=== PATIENT | female | born 2000 | race African-American/Black ===

== ENCOUNTER 2024-02-09 10:24 | Inpatient (IN) | payer SELFPAY ==
[2024-02-09] MEDS: HumaLOG 300 UNITS/3 ML VIAL SC PRN (10:27)
[2024-02-09] MEDS ORDERED: Glucagon 1 MG/ML KIT IM PRN (10:30)
[2024-02-09] MEDS ORDERED: Dextrose 50% Abboject 50 ML SYRINGE SLOW IVP PRN (10:30)
[2024-02-09] MEDS ORDERED: Dextrose 5% in Water 1,000 ML IV PRN (10:30)
[2024-02-09] MEDS ORDERED: Benzocaine/Menthol 1 LOZ LOZ PO PRN (10:30)
[2024-02-09] MEDS ORDERED: Guaifenesin DM 100-10/5 ML UDCUP PO PRN (10:31)
[2024-02-09] MEDS ORDERED: Communication Order-Pharmacy FS PRN (10:40)
[2024-02-09] MEDS: cefTRIAXone\\ROCEPHIN 1 GM in Sodium Chloride 0.9% 100 ML IVPB SCH (10:45)
[2024-02-09] MEDS: Sodium Chloride 0.9% 1,000 ML IV SCH (11:00)
[2024-02-09] MEDS: Sodium Chloride 0.9% 250 ML IV SCH (11:00)
[2024-02-09 11:01] LABS: MONO NEGATIVE CONTROL ZONE White (Negative) (White); MONO POSITIVE CONTROL Pink Line (Positive) (PINK/RED); Mononucleosis NEGATIVE (NEGATIVE)
[2024-02-09 11:03] LABS: Troponin I Less than 0.010 ng/mL (< 0.028)
[2024-02-09 11:07] LABS: Lactic Acid 1.7 mmol/L (0.5-2.2)
[2024-02-09 11:08] LABS: Bilirubin Negative (Negative); Blood, Urine 250 (Negative); Clarity Cloudy (Clear); Glucose, Urine (Dipstick) Negative (Negative); Ketone, Urine 15 mg/dL (Negative); Leukocyte 500 (Negative); Nitrite Negative (Negative); Protein, Urine (Dipstick) 100 mg/dl (Neg-Trace); RBC/HPF 21-50 HPF (0-3); Urobilinogen Normal mg/dL (Less than 2); WBC/HPF Greater than 50 HPF (0-3)
[2024-02-09 11:09] LABS: Bacteria/HPF 4+ HPF (None Seen)
[2024-02-09 11:11] LABS: Hematocrit 30.3 % (34.9-44.5); Hemoglobin 11.1 g/dL (12.0-15.5); Mean Corpuscular HGB CONC 36.6 g/dL (32.0-36.0); Mean Corpuscular Hemoglobin 33.3 pg (27.0-33.0); Mean Platelet Volume 12.8 fl (7.4-10.4); RBC Distribution Width 12.8 % (11.5-14.5); Red Blood Cell (RBC) Count 3.33 10x6/uL (3.90-5.03); White Blood Cell (WBC) Count 17.4 10x3/uL (3.5-10.5)
[2024-02-09 11:12] LABS: MDiff Complete? YES; Platelet Count 91 10x3/uL (150-450); Toxic Granulation SLIGHT; Vacuoles SLIGHT
[2024-02-09 11:13] LABS: Dohle Bodies SLIGHT
[2024-02-09 11:14] LABS: Platelet Adequacy Comment Appears Decreased
[2024-02-09 11:15] LABS: Band 25 % (5-11); Eosinophils 2 % (0-10); Lymphocytes 4 % (21-51); Metamyelocyte 2 % (0-0); Monocytes 12 % (0-10); Myelocyte 2 % (0-0); Neutrophil 53 % (42-75)
[2024-02-09 11:16] LABS: RBC Morph Comment Within Normal Limits
[2024-02-09 11:20] LABS: Sodium 131 mmol/L (136-145)
[2024-02-09 11:21] LABS: Anion Gap 27 mmol/L (10-20); BUN (Urea Nitrogen) 60 mg/dL (7.0-18.7); Calc. Creatinine Clearance 24 mL/min (70-130); Calcium 7.3 mg/dL (7.6-10.4); Carbon Dioxide 10 mmol/L (22-29); Chloride 98 mmol/L (98-107); Estimated GFR 22; Glucose 187 mg/dL (70-105)
[2024-02-09 11:22] LABS: AST (SGOT) 30 U/L (5-34); Albumin 1.9 g/dL (3.5-5.0); Alkaline Phosphatase 232 U/L (40-110); Bilirubin, Total 0.9 mg/dL (0.2-1.2); CK (CPK) 24 U/L (29-168); Globulin 4.8 g/dL (2.4-3.5); Protein, Total 6.7 g/dL (6.0-8.3)
[2024-02-09 11:23] LABS: ALT (SGPT) 24 U/L (8-55); Magnesium 2.3 mg/dL (1.6-2.6); Phosphorus 4.8 mg/dL (2.3-4.7)
[2024-02-09 11:38] LABS: Phosphorus 4.8 mg/dL (2.3-4.7)
[2024-02-09 12:00] LABS: Free T4 (Free Thyroxine) 1.11 ng/dL (0.70-1.48)
[2024-02-09] MEDS: Metoprolol Tartrate 5 MG (5 mL) VIAL IVP SCH (12:11)
[2024-02-09] MEDS: Pantoprazole 40 MG VIAL IVP SCH (12:50)
[2024-02-09 13:28] LABS: Influenza A by NAA Not Detected (NotDetected); Influenza B by NAA Not Detected (NotDetected); RSV by NAA Not Detected (NotDetected); SARS-CoV-2 NAA Rapid Test Not Detected (NotDetected)
[2024-02-09] MEDS: Ondansetron PF 4 MG/2 ML Vial IVP PRN (14:44)
[2024-02-09] MEDS: Metoprolol Tartrate 5 MG (5 mL) VIAL ONE (14:58)
[2024-02-09] MEDS: Metoclopramide HCl 10 MG (2 mL) VIAL IVP SCH (15:18)
[2024-02-09] MEDS: Metoprolol Tartrate 25 MG TAB PO SCH ×2 (15:18→19:59)
[2024-02-09] MEDS: Morphine 2 MG/ML VIAL SLOW IVP PRN (15:18)
[2024-02-09] MEDS: Piperacillin/Tazobactam 3.375 GM in Sodium Chloride 0.9% 100 ML IVPB SCH ×2 (15:18→19:59)
[2024-02-09 16:32] LABS: Amphetamine Not Detected (NotDetected); Barbiturates Screen Not Detected (NotDetected); Benzodiazepine Screen Not Detected (NotDetected); Cocaine Metabolite Screen Not Detected (NotDetected); Methadone Not Detected (NotDetected); Methamphetamine Not Detected (NotDetected); Opiate Screen Detected (NotDetected); Oxycodone Screen Not Detected (NotDetected); Phencyclidine (PCP) Not Detected (NotDetected); THC/Cannabinoid Screen Detected (NotDetected); Tricyclic Screen Not Detected (NotDetected)
[2024-02-09 17:04] LABS: D-Dimer Test 6.46 mcg/mL (0.19-0.50); INR-International Normal Ratio 1.3; PTT 26.8 sec (22.0-33.0); Prothrombin Time 13.4 sec (9.5-12.1)
[2024-02-09 17:05] LABS: HIV (1/2) Antibody/Antigen Non-Reactive (NonReactive); HIV 1/2 INDEX 0.06 S/CO (<1.00)
[2024-02-09 18:20] LABS: Hemoglobin A1c 9.1 % (4.0-6.0)
[2024-02-09] MEDS: Albumin 25% 25 GM (100 mL) BOT IVPB SCH (20:00)
[2024-02-09] MEDS: Calcium Carbonate 500 MG ChewTAB PO SCH (20:00)
[2024-02-09 20:16] LABS: Anion Gap 20 mmol/L (10-20); BUN (Urea Nitrogen) 53 mg/dL (7.0-18.7); Calc. Creatinine Clearance 30 mL/min (70-130); Carbon Dioxide 10 mmol/L (22-29); Chloride 102 mmol/L (98-107); Estimated GFR 29; Glucose 153 mg/dL (70-105); Potassium 3.7 mmol/L (3.5-5.1); Sodium 128 mmol/L (136-145)
[2024-02-09 20:18] LABS: Hematocrit 19.4 % (34.9-44.5); Hemoglobin 6.8 g/dL (12.0-15.5); Platelet Count 71 10x3/uL (150-450)
[2024-02-09 23:34] LABS: D-Dimer Test 7.27 mcg/mL (0.19-0.50); INR-International Normal Ratio 1.2; PTT 38.4 sec (22.0-33.0); Prothrombin Time 13.3 sec (9.5-12.1)
[2024-02-09 23:38] LABS: Albumin 2.1 g/dL (3.5-5.0); Bilirubin, Direct 0.5 mg/dL (0.1-0.3); Bilirubin, Total 1.4 mg/dL (0.2-1.2); Calcium 7.6 mg/dL (7.8-10.44); Globulin 4.5 g/dL (2.4-3.5); Potassium 4.7 mmol/L (3.5-5.1); Protein, Total 6.6 g/dL (6.0-8.3)
[2024-02-09 23:45] LABS: Chlam.trachomatis by PCR,Urine Not Detected (NotDetected); GC N.gonorrhoeae PCR,UrineVOID Not Detected (NotDetected)
[2024-02-09 23:47] LABS: Fibrinogen Greater than 860 mg/dL (220-504)
[2024-02-09 23:48] LABS: Platelet Count 62 10x3/uL (150-450)
[2024-02-09 23:50] LABS: Hematocrit 28.7 % (34.9-44.5); Hemoglobin 10.2 g/dL (12.0-15.5); Mean Corpuscular HGB CONC 35.5 g/dL (32.0-36.0); Mean Corpuscular Hemoglobin 32.8 pg (27.0-33.0); Mean Corpuscular Volume 92.3 fl (81.6-98.3); Mean Platelet Volume 12.8 fl (7.4-10.4); RBC Distribution Width 13.9 % (11.5-14.5); Red Blood Cell (RBC) Count 3.11 10x6/uL (3.90-5.03); White Blood Cell (WBC) Count 18.8 10x3/uL (3.5-10.5)
[2024-02-09 23:51] LABS: MDiff Complete? YES; Platelet Count 64 10x3/uL (150-450)
[2024-02-10] MEDS: traMADol HCl 50 MG TAB PO PRN (00:02)
[2024-02-10 00:23] LABS: Band 36 % (5-11); Lymphocytes 8 % (21-51); Monocytes 7 % (0-10); Neutrophil 49 % (42-75)
[2024-02-10 00:27] LABS: Platelet Adequacy Comment Appears Decreased; RBC Morph Comment Within Normal Limits
[2024-02-10 01:01] LABS: Actual Bicarbonate (HCO3v) 9.1 mEq/L (22-28); Analyzer IN Cardio CS ICU; Base Excess -18.5 mEq/L (-2 - +2); Calcium, Ionized (venous) 1.01 mmol/L (1.16-1.32); Chloride (VBG) 100 mmol/L (98-106); Critical Notified By: CP.PH; Critical Notified Whom: RN-Ceranise; Hematocrit-VBG 35 % (36.0-47.0); Hemoglobin (Hb) 11.8 g/dL (11.7-15.5); Potassium (VBG) 4.01 mmol/L (3.70-5.30); Puncture Site Other Site; RapidComm Collect By LAB.YY; Sodium 130 mmol/L (133-146)
[2024-02-10 01:18] LABS: Dohle Bodies SLIGHT; Toxic Granulation SLIGHT; Vacuoles SLIGHT
[2024-02-10] MEDS: Sodium Bicarbonate 150 MEQ in Dextrose 5% in Water 1,000 ML IV SCH ×2 (01:51→14:56)
[2024-02-10] MEDS: Sodium Chloride 0.9% 1,000 ML IV SCH (02:08)
[2024-02-10 03:34] LABS: Hematocrit 31.8 % (34.9-44.5); MDiff Complete? YES; Mean Corpuscular HGB CONC 34.6 g/dL (32.0-36.0); Mean Corpuscular Hemoglobin 32.7 pg (27.0-33.0); Mean Corpuscular Volume 94.6 fl (81.6-98.3); Mean Platelet Volume 12.6 fl (7.4-10.4); Platelet Count 58 10x3/uL (150-450); RBC Distribution Width 14.1 % (11.5-14.5); Red Blood Cell (RBC) Count 3.36 10x6/uL (3.90-5.03); White Blood Cell (WBC) Count 20.6 10x3/uL (3.5-10.5)
[2024-02-10 03:46] LABS: ALT (SGPT) 22 U/L (8-55); AST (SGOT) 22 U/L (5-34); Alkaline Phosphatase 326 U/L (40-110); Anion Gap 26 mmol/L (10-20); BUN (Urea Nitrogen) 53 mg/dL (7.0-18.7); Bilirubin, Total 1.4 mg/dL (0.2-1.2); Calc. Creatinine Clearance 28 mL/min (70-130); Calcium 7.9 mg/dL (7.8-10.44); Chloride 100 mmol/L (98-107); Estimated GFR 27; Globulin 4.8 g/dL (2.4-3.5); Glucose 231 mg/dL (70-105); Magnesium 2.3 mg/dL (1.6-2.6); Potassium 4.2 mmol/L (3.5-5.1); Protein, Total 6.8 g/dL (6.0-8.3); Sodium 130 mmol/L (136-145)
[2024-02-10 03:53] LABS: Carbon Dioxide 8 mmol/L (22-29)
[2024-02-10] MEDS: INSULIN REGULAR IN 0.9 % NACL 100 UNITS in Premix 1 BAG IVPB SCH (04:29)
[2024-02-10 04:41] LABS: Band 31 % (5-11); Lymphocytes 7 % (21-51); Metamyelocyte 3 % (0-0); Monocytes 8 % (0-10); Neutrophil 51 % (42-75)
[2024-02-10 04:44] LABS: Dohle Bodies SLIGHT; Platelet Adequacy Comment Appears Decreased; RBC Morph Comment Within Normal Limits; Toxic Granulation SLIGHT; Vacuoles SLIGHT
[2024-02-10 05:51] LABS: Lactic Acid 1.3 mmol/L (0.5-2.2)
[2024-02-10] MEDS ORDERED: Meropenem 500 MG in Sodium Chloride 0.9% 100 ML IVPB SCH (06:00)
[2024-02-10 07:21] LABS: EBV VCA IgM <36.0 U/mL (0.0-35.9)
[2024-02-10] MEDS: Albumin 25% 25 GM (100 mL) BOT IVPB SCH (07:37)
[2024-02-10] MEDS: Meropenem 1 GM in Sodium Chloride 0.9% 100 ML IVPB SCH ×2 (08:24→21:44)
[2024-02-10 08:28] VITALS: BMI 23.2
[2024-02-10] MEDS ORDERED: Lantus 1000 UNITS/10 ML VIAL SC SCH (09:00)
[2024-02-10 09:18] LABS: Anion Gap 19 mmol/L (10-20); BUN (Urea Nitrogen) 52 mg/dL (7.0-18.7); Calc. Creatinine Clearance 34 mL/min (70-130); Calcium 7.9 mg/dL (7.8-10.44); Carbon Dioxide 15 mmol/L (22-29); Chloride 101 mmol/L (98-107); Estimated GFR 30; Glucose 190 mg/dL (70-105); Potassium 3.2 mmol/L (3.5-5.1); Sodium 132 mmol/L (136-145)
[2024-02-10 10:15] LABS: Hematocrit 34.7 % (34.9-44.5); Hemoglobin 13.6 g/dL (12.0-15.5); Mean Corpuscular HGB CONC 39.2 g/dL (32.0-36.0); Mean Corpuscular Hemoglobin 34.1 pg (27.0-33.0); Mean Platelet Volume 12.7 fl (7.4-10.4); Platelet Count 52 10x3/uL (150-450); RBC Distribution Width 13.4 % (11.5-14.5); Red Blood Cell (RBC) Count 3.99 10x6/uL (3.90-5.03); White Blood Cell (WBC) Count 22.2 10x3/uL (3.5-10.5)
[2024-02-10 10:16] LABS: MDiff Complete? YES
[2024-02-10 10:27] LABS: Band 17 % (5-11); Eosinophils 1 % (0-10); Metamyelocyte 3 % (0-0); Monocytes 5 % (0-10); Myelocyte 1 % (0-0)
[2024-02-10 10:28] LABS: Lymphocytes 8 % (21-51); Neutrophil 64 % (42-75)
[2024-02-10] MEDS ORDERED: cefTRIAXone\\ROCEPHIN 1 GM in Sodium Chloride 0.9% 100 ML IVPB SCH (10:30)
[2024-02-10 10:31] LABS: Dohle Bodies SLIGHT; Large Platelets SLIGHT (None Seen); Ovalocytes SLIGHT = 2-5 cells (100X) (0-1/hpf); Platelet Adequacy Comment Appears Decreased; Toxic Granulation SLIGHT
[2024-02-10 12:06] LABS: Reflex for Review?? YES
[2024-02-10] MEDS: Potassium Chloride 20 MEQ TAB PO SCH (14:58)
[2024-02-10 15:51] LABS: Albumin 2.2 g/dL (3.5-5.0); Anion Gap 14 mmol/L (10-20); BUN (Urea Nitrogen) 50 mg/dL (7.0-18.7); BUN/Creatinine Ratio 23.81; Calc. Creatinine Clearance 37 mL/min (70-130); Calcium 8.1 mg/dL (7.8-10.44); Carbon Dioxide 20 mmol/L (22-29); Chloride 102 mmol/L (98-107); Estimated GFR 34; Glucose 136 mg/dL (70-105); Phosphorus 2.9 mg/dL (2.3-4.7); Potassium 2.7 mmol/L (3.5-5.1); Sodium 133 mmol/L (136-145)
[2024-02-10] MEDS: Meropenem 500 MG in Sodium Chloride 0.9% 100 ML IVPB SCH (16:04)
[2024-02-10 19:06] LABS: Albumin 2.7 g/dL (3.5-5.0); Anion Gap 21 mmol/L (10-20); BUN (Urea Nitrogen) 51 mg/dL (7.0-18.7); BUN/Creatinine Ratio 24.17; Calc. Creatinine Clearance 37 mL/min (70-130); Calcium 8.6 mg/dL (7.8-10.44); Carbon Dioxide 16 mmol/L (22-29); Chloride 101 mmol/L (98-107); Estimated GFR 34; Glucose 146 mg/dL (70-105); Phosphorus 3.1 mg/dL (2.3-4.7); Potassium 3.5 mmol/L (3.5-5.1); Sodium 134 mmol/L (136-145)
[2024-02-10] MEDS: Acetaminophen 325 MG TAB PO PRN (19:54)
[2024-02-10] MEDS: Potassium Chloride 20 MEQ in Premix 1 BAG IVPB SCH (19:55)
[2024-02-10 21:08] LABS: Hematocrit 24.2 % (34.9-44.5); Hemoglobin 9.1 g/dL (12.0-15.5); Platelet Count 40 10x3/uL (150-450)
[2024-02-10] MEDS: Docusate 100 MG CAP PO SCH (22:30)
[2024-02-11] MEDS: Lantus 1000 UNITS/10 ML VIAL SC SCH (01:02)
[2024-02-11 03:54] LABS: Hematocrit 26.4 % (34.9-44.5); Hemoglobin 9.4 g/dL (12.0-15.5); Mean Corpuscular HGB CONC 35.6 g/dL (32.0-36.0); Mean Corpuscular Hemoglobin 32.4 pg (27.0-33.0); Mean Platelet Volume 11.4 fl (7.4-10.4); Platelet Count 39 10x3/uL (150-450); RBC Distribution Width 14.1 % (11.5-14.5); White Blood Cell (WBC) Count 18.8 10x3/uL (3.5-10.5)
[2024-02-11 04:06] LABS: MDiff Complete? YES
[2024-02-11 04:09] LABS: ALT (SGPT) 17 U/L (8-55); AST (SGOT) 19 U/L (5-34); Albumin 2.2 g/dL (3.5-5.0); Alkaline Phosphatase 401 U/L (40-110); Anion Gap 17 mmol/L (10-20); BUN (Urea Nitrogen) 54 mg/dL (7.0-18.7); Bilirubin, Total 3.1 mg/dL (0.2-1.2); CK (CPK) Less than 9 U/L (29-168); Calc. Creatinine Clearance 37 mL/min (70-130); Calcium 8.6 mg/dL (7.8-10.44); Carbon Dioxide 17 mmol/L (22-29); Chloride 101 mmol/L (98-107); Estimated GFR 33; Globulin 3.3 g/dL (2.4-3.5); Glucose 172 mg/dL (70-105); Magnesium 2.3 mg/dL (1.6-2.6); Potassium 4.4 mmol/L (3.5-5.1); Protein, Total 5.5 g/dL (6.0-8.3); Sodium 131 mmol/L (136-145)
[2024-02-11 04:22] LABS: Hypochromia SLIGHT = 6-15 cells (100X) (0-5/hpf); Ovalocytes SLIGHT = 2-5 cells (100X) (0-1/hpf); Platelet Adequacy Comment Appears Decreased
[2024-02-11 04:24] LABS: Band 14 % (5-11); Eosinophils 1 % (0-10); Lymphocytes 7 % (21-51); Monocytes 6 % (0-10); Neutrophil 72 % (42-75)
[2024-02-11] MEDS: Sodium Bicarbonate Tab 325 MG TAB PO SCH (09:39)
[2024-02-11] MEDS: Pantoprazole DR 40 MG TAB PO SCH (09:40)
[2024-02-11] MEDS: Docusate 100 MG CAP PO SCH (09:40)
[2024-02-11] MEDS: Polyethylene Glycol 3350 17 GM Packet PO SCH (10:17)
[2024-02-11 12:03] LABS: ANA Symphony (Qualitative) Negative (Negative); ANA Symphony (Quantitative) 0.2 Ratio (< 0.7 Negative); dsDNA IgG Antibody 2.2 IU/mL (<10 Negative)
[2024-02-11] MEDS: Metoclopramide HCl 10 MG TAB PO SCH (12:22)
[2024-02-11] MEDS: Albumin 25% 25 GM (100 mL) BOT IVPB SCH (12:30)
[2024-02-11 17:35] LABS: Bilirubin 3+ (Negative); Clarity Bloody (Clear); Glucose, Urine (Dipstick) 50 mg/dL (Negative); Ketone, Urine 15 mg/dL (Negative); Leukocyte 500 (Negative); Nitrite Negative (Negative); Protein, Urine (Dipstick) 500 mg/dl (Neg-Trace)
[2024-02-11 17:37] LABS: Blood, Urine 250 (Negative)
[2024-02-11 17:41] LABS: RBC/HPF Greater than 50 HPF (0-3)
[2024-02-11 17:42] LABS: Bacteria/HPF 2+ HPF (None Seen); Squamous Epithelial 0-3 HPF (0-3)
[2024-02-11 20:25] LABS: Bilirubin, Direct 2.9 mg/dL (0.1-0.3); Bilirubin, Total 3.6 mg/dL (0.2-1.2)
[2024-02-11 20:30] LABS: Hematocrit 22.7 % (34.9-44.5); Hemoglobin 8.4 g/dL (12.0-15.5); Platelet Count 39 10x3/uL (150-450)
[2024-02-11 21:27] LABS: INR-International Normal Ratio 1.2; PTT 30.2 sec (22.0-33.0); Prothrombin Time 12.5 sec (9.5-12.1)
[2024-02-12 01:09] VITALS: BP 130/84; TEMP 98.4
[2024-02-12 03:35] LABS: Hematocrit 20.6 % (34.9-44.5); Hemoglobin 7.4 g/dL (12.0-15.5); MDiff Complete? YES; Mean Corpuscular HGB CONC 35.9 g/dL (32.0-36.0); Mean Corpuscular Hemoglobin 32.3 pg (27.0-33.0); Platelet Count 34 10x3/uL (150-450); Red Blood Cell (RBC) Count 2.29 10x6/uL (3.90-5.03)
[2024-02-12] MEDS: Metoprolol Tartrate 5 MG (5 mL) VIAL IVP SCH (03:44)
[2024-02-12 03:54] LABS: ALT (SGPT) 12 U/L (8-55); AST (SGOT) 16 U/L (5-34); Alkaline Phosphatase 402 U/L (40-110); Anion Gap 17 mmol/L (10-20); BUN (Urea Nitrogen) 47 mg/dL (7.0-18.7); Bilirubin, Total 3.4 mg/dL (0.2-1.2); Calc. Creatinine Clearance 45 mL/min (70-130); Calcium 9.2 mg/dL (7.8-10.44); Carbon Dioxide 21 mmol/L (22-29); Chloride 98 mmol/L (98-107); Estimated GFR 43; Glucose 203 mg/dL (70-105); Magnesium 2.1 mg/dL (1.6-2.6); Potassium 4.1 mmol/L (3.5-5.1); Sodium 132 mmol/L (136-145)
[2024-02-12 04:32] LABS: Hypochromia SLIGHT = 6-15 cells (100X) (0-5/hpf); Ovalocytes SLIGHT = 2-5 cells (100X) (0-1/hpf); Platelet Adequacy Comment Appears Decreased
[2024-02-12 04:54] LABS: Band 15 % (5-11); Eosinophils 1 % (0-10); Lymphocytes 9 % (21-51); Monocytes 9 % (0-10); Neutrophil 66 % (42-75)
[2024-02-12 07:03] LABS: Iron 20 ug/dL (50-170); Iron Binding Capacity, Total 99 mcg/dL (265-497)
[2024-02-12] MEDS: Sodium Bicarbonate 150 MEQ in Dextrose 5% in Water 1,000 ML IV SCH (09:02)
[2024-02-12] MEDS: Metoprolol Tartrate 5 MG (5 mL) VIAL ONE (12:35)
[2024-02-12 14:45] LABS: Hemoglobin 6.1 g/dL (12.0-15.5); Mean Corpuscular HGB CONC 35.9 g/dL (32.0-36.0); Mean Corpuscular Hemoglobin 32.1 pg (27.0-33.0); Mean Corpuscular Volume 89.5 fl (81.6-98.3); Mean Platelet Volume 12.7 fl (7.4-10.4); RBC Distribution Width 14.2 % (11.5-14.5); White Blood Cell (WBC) Count 13.4 10x3/uL (3.5-10.5)
[2024-02-12 14:46] LABS: Platelet Count 33 10x3/uL (150-450)
[2024-02-12 15:18] LABS: MDiff Complete? YES
[2024-02-12 15:40] LABS: Band 25 % (5-11); Lymphocytes 5 % (21-51); Monocytes 4 % (0-10); Neutrophil 66 % (42-75)
[2024-02-12 15:42] LABS: Anisocytosis SLIGHT = 6-15 cells (100X) (0-5/hpf)
[2024-02-12 15:44] LABS: Dohle Bodies SLIGHT; Platelet Adequacy Comment Appears Decreased; Toxic Granulation SLIGHT
[2024-02-12 15:48] LABS: Complement-C3 70 mg/dL (83-193); Complement-C4 17 mg/dL (15-57)
[2024-02-13 07:17] LABS: Adenovirus F 40-41 Not Detected (Not Detected); Astrovirus Not Detected (Not Detected); C. difficile toxin A+B Not Detected (Not Detected); Campylobacter by PCR Not Detected (Not Detected); Cryptosporidium Not Detected (Not Detected); Cyclospora cayetanensis Not Detected (Not Detected); Entamoeba histolytica Not Detected (Not Detected); Enteroaggregative E. coli Not Detected (Not Detected); Enteropathogenic E. coli Not Detected (Not Detected); Enterotoxigenic E. coli Not Detected (Not Detected); Giardia lamblia Not Detected (Not Detected); Norovirus GI-GII Not Detected (Not Detected); Plesiomonas shigelloides Not Detected (Not Detected); Rotavirus A Not Detected (Not Detected); Salmonella Not Detected (Not Detected); Sapovirus Not Detected (Not Detected); Shiga-toxin-producing E coli Not Detected (Not Detected); Shigella/Enteroinvasive E coli Not Detected (Not Detected); Vibrio Not Detected (Not Detected); Vibrio cholerae Not Detected (Not Detected); Yersinia enterocolitica Not Detected (Not Detected)
== END 2024-02-12 17:45 | disposition short-term general hospital (02) | DRG 871 ==
LOC: CSHIMCU 10:24
PROVIDERS: ADMIT Family Medicine; ATTEND Internal Medicine
PROC: 3E03329 Introduction of Other Anti-infective into Peripheral Vein, Percutaneous Approach (ICD-10-PCS; 2024-02-09)
PROC: 30233R1 Transfusion of Nonautologous Platelets into Peripheral Vein, Percutaneous Approach (ICD-10-PCS; principal; 2024-02-12)
PROC: 30233N1 Transfusion of Nonautologous Red Blood Cells into Peripheral Vein, Percutaneous Approach (ICD-10-PCS; 2024-02-12)
DX: A41.51 Sepsis due to Escherichia coli [E. coli] (principal); D65 Disseminated intravascular coagulation [defibrination syndrome]; E10.10 Type 1 diabetes mellitus with ketoacidosis without coma; I47.10 Supraventricular tachycardia, unspecified; N17.9 Acute kidney failure, unspecified; N12 Tubulo-interstitial nephritis, not specified as acute or chronic; E10.9 Type 1 diabetes mellitus without complications; R65.20 Severe sepsis without septic shock; E10.43 Type 1 diabetes mellitus with diabetic autonomic (poly)neuropathy; R11.2 Nausea with vomiting, unspecified; K31.84 Gastroparesis; D72.829 Elevated white blood cell count, unspecified; E86.0 Dehydration; D64.9 Anemia, unspecified; R33.9 Retention of urine, unspecified; Z79.4 Long term (current) use of insulin; Z88.8 Allergy status to other drugs, medicaments and biological substances; Z90.49 Acquired absence of other specified parts of digestive tract
CPT/HCPCS: 0241U; 36415; 36416; 36430; 71045; 76705; 76770; 78226; 80053; 80306; 81001; 82010; 82247; 82550; 82570; 82728; 82805; 82977; 83010; 83036; 83540; 83550; 83605; 83615; 83630; 83735; 84100; 84145; 84156; 84300; 84439; 84443; 84481; 84484; 85014; 85018; 85025; 85046; 85049; 85060; 85300; 85362; 85384; 85610; 85730; 86038; 86140; 86160; 86225; 86308; 86664; 86665; 86850; 86880; 86900; 86901; 87040; 87077; 87086; 87149; 87186; 87389; 87491; 87505; 87507; 87591; 87661; 93005; 93010; 93306; 93970; A9537; C9113; J0696; J1815; J2185; J2272; J2405; J2543; J2765; J3480; J3490; J7030; J7050; J7070; P9016; P9035; P9047